=== PATIENT | female | born 1970 | race African-American/Black ===

== ENCOUNTER 2017-04-01 08:08 | Outpatient (CLI) | payer OTHER ==
--- NOTE | 2017-04-01 09:44 | MMO ---
BILATERAL SCREENING MAMMOGRAMS: History: Baseline study. This study is interpreted with the assistance of computer aided detection. FINDINGS: Both breasts show fatty replacement. No evidence of mass or distortion. No suspicious calcification. Recommend one year follow up. IMPRESSION: BIRADS 1 - negative. POS: [facility]
== END 2017-04-01 08:09 | disposition home or self-care (01) ==
LOC: MAMMO 08:08
PROVIDERS: ATTEND Family Medicine
DX: Z12.31 Encounter for screening mammogram for malignant neoplasm of breast (principal)
CPT/HCPCS: 77067; G0202

== ENCOUNTER 2018-04-10 13:25 | Outpatient (CLI) | payer OTHER | END 2018-04-10 13:26 | disposition home or self-care (01) | LOC: BICMAMMO 13:25 | PROVIDERS: ATTEND Family Medicine | DX: Z12.31 Encounter for screening mammogram for malignant neoplasm of breast (principal); Z80.3 Family history of malignant neoplasm of breast; Z85.42 Personal history of malignant neoplasm of other parts of uterus | CPT/HCPCS: 77063; 77067 ==

== ENCOUNTER 2018-09-15 10:02 | Outpatient (CLI) | payer OTHER ==
--- NOTE | 2018-09-15 11:24 | RAD ---
CHEST TWO VIEWS: HISTORY: Bronchitis. Cough. COMPARISON: 05/31/2010 FINDINGS: Very minimal linear and parenchymal changes in the left lower lobe. Heart size is normal. The lungs are otherwise clear. No confluent pneumonia, overt edema, or pleural effusion. IMPRESSION: Minimal horizontal linear and parenchymal changes in the left lower lobe, possibly a small focus of s ubsegmental atelectasis or fibrosis developing since the prior study. No evidence for pneumonia. POS: [facility] [place]
== END 2018-09-15 10:03 | disposition home or self-care (01) ==
LOC: SCSRAD 10:02
PROVIDERS: ATTEND Nurse Practitioner Family
DX: J40 Bronchitis, not specified as acute or chronic (principal); R91.8 Other nonspecific abnormal finding of lung field
CPT/HCPCS: 71046

== ENCOUNTER 2018-09-30 11:07 | Outpatient (CLI) | payer OTHER ==
--- NOTE | 2018-09-30 13:41 | RAD ---
PA AND LATERAL VIEWS CHEST: Date: 09/30/18 HISTORY: Abnormal x-ray on 09/15/18. FINDINGS: Comparison made with exam of 09/15/18. The heart size is normal. No lobar consolidation, pneumothoraces, or pleural effusions are seen. Ther e is minimal linear scarring in the left lower lobe. There are degenerative changes in the spine. IMPRESSION: No acute process. POS: [facility]
== END 2018-09-30 11:08 | disposition home or self-care (01) ==
LOC: SCSRAD 11:07
PROVIDERS: ATTEND Family Medicine
DX: R93.89 Abnormal findings on diagnostic imaging of other specified body structures (principal)
CPT/HCPCS: 71046

== ENCOUNTER 2019-04-30 07:58 | Outpatient (CLI) | payer OTHER ==
--- NOTE | 2019-04-30 08:43 | MMO ---
Bilateral MAMMO Bilat Screen [facility]. CLINICAL HISTORY: Patient is 48 years old and is seen for screening. The patient has the following family history of breast cancer: mother. The patient has a history of uterine cancer. VIEWS: The views performed were: bilateral craniocaudal; bilateral craniocaudal with tomosynthesis; bilateral mediolateral oblique; and bilateral mediolateral oblique with tomosynthesis. FILMS COMPARED: The present examination has been compared to a prior imaging study performed at [facility] on 04/10/2018. This study has been interpreted with the assistance of computer-aided detection. MAMMOGRAM FINDINGS: The breasts are almost entirely fat. There are no suspicious masses, suspicious calcifications, or new areas of architectural distortion. IMPRESSION: THERE IS NO MAMMOGRAPHIC EVIDENCE OF MALIGNANCY. A ROUTINE FOLLOW-UP MAMMOGRAM IN 1 YEAR IS RECOMMENDED. THE RESULTS OF THIS EXAM WERE SENT TO THE PATIENT. ACR BI-RADS Category 1 - Negative MAMMOGRAPHY NOTE: 1. A negative mammogram report should not delay a biopsy if a dominant of clinically suspicious mass is present. 2. Approximately 10% to 15% of breast cancers are not detected by mammography. 3. Adenosis and dense breasts may obscure an underlying neoplasm. Reported by: DALLIN HERBERT MD Electonically Signed: [id number]
== END 2019-04-30 07:59 | disposition home or self-care (01) ==
LOC: BICMAMMO 07:58
PROVIDERS: ATTEND Family Medicine
DX: Z12.31 Encounter for screening mammogram for malignant neoplasm of breast (principal); Z80.3 Family history of malignant neoplasm of breast; Z85.42 Personal history of malignant neoplasm of other parts of uterus
CPT/HCPCS: 77063; 77067

== ENCOUNTER 2020-09-01 10:01 | Outpatient (CLI) | payer OTHER | END 2020-09-01 10:02 | disposition home or self-care (01) | LOC: BICMAMMO 10:01 | PROVIDERS: ATTEND Family Medicine | DX: Z12.31 Encounter for screening mammogram for malignant neoplasm of breast (principal); Z80.3 Family history of malignant neoplasm of breast | CPT/HCPCS: 77063; 77067 ==

== ENCOUNTER 2021-04-19 16:22 | Outpatient (CLI) | payer OTHER | END 2021-04-19 16:23 | disposition home or self-care (01) | LOC: SCSRAD 16:22 | PROVIDERS: ATTEND Nurse Practitioner Family | DX: R05.9 Cough, unspecified (principal) | CPT/HCPCS: 71046 ==

== ENCOUNTER 2021-11-16 08:58 | Outpatient (CLI) | payer BC, OTHER | END 2021-11-16 08:59 | disposition home or self-care (01) | LOC: BICMAMMO 08:58 | PROVIDERS: ATTEND Family Medicine | DX: Z12.31 Encounter for screening mammogram for malignant neoplasm of breast (principal); Z80.3 Family history of malignant neoplasm of breast | CPT/HCPCS: 77063; 77067 ==